=== PATIENT | female | born 1995 | race Caucasian/White ===

== ENCOUNTER 2018-01-05 13:15 | Emergency (ER) | payer MEDICAID ==
[~2018-01-05] VITALS: Ht 162.6 cm; Wt 70.3 kg
[2018-01-05 13:33] VITALS: BP_SYST 152
--- NOTE | 2018-01-05 13:43 | NUR ---
Armida Pike [employer] ENGINEER performing MSE at triage room.
[2018-01-05 14:13] LABS: BILIRUBIN,URINE NEGATIVE (NEGATIVE); CLARITY/URINE SL HAZY (CLEAR); COLOR,URINE YELLOW (YELLOW); GLUCOSE,URINE NEGATIVE (NEGATIVE); KETONES,URINE NEGATIVE (NEGATIVE); LEUKOCYTE ESTERASE ,URINE NEGATIVE (NEGATIVE); NITRITE, URINE NEGATIVE (NEGATIVE); PH,URINE 5.5 (5.0-8.0); PROTEIN URINE NEGATIVE (NEGATIVE); UROBILINOGEN,URINE 0.2 (0.2-1.0)
[2018-01-05 14:16] LABS: BLOOD, URINE TRACE (NEGATIVE)
[2018-01-05 14:33] LABS: BACTERIA,URINE MODERATE /HPF (None Seen); MUCUS,URINE 2+ /LPF (None Seen); RBC,URINE 0-3 /HPF (0-3)
[2018-01-05 14:36] LABS: BARBITURATE, URINE NEGATIVE (NEG <=200); METHAMPHETAMINES SCREEN,URINE NEGATIVE (NEG <=500); URINE AMPHETAMINE NEGATIVE (NEG <=500)
[2018-01-05 14:37] LABS: BENZODIAZEPINE, URINE NEGATIVE (NEG <=150); CANNABINOID, URINE NEGATIVE (NEG <=50); COCAINE, URINE NEGATIVE (NEG <=150); OPIATE, URINE NEGATIVE (NEG <=100); PHENCYCLIDINE SCREEN,URINE NEGATIVE (NEG <=25); UR TRICYCLIC ANTIDEPRESSANTS NEGATIVE (NEG <=300); URINE METHADONE NEGATIVE (NEG <=200); URINE OXYCODONE SCREEN NEGATIVE (NEG <=100); URINE PROPOXYPHENE SCREEN NEGATIVE (NEG <=300)
[2018-01-05] MEDS ORDERED: KETOROLAC TROMETHAMINE 60 MG/2 ML VIAL IM ONE (15:30)
--- NOTE | 2018-01-05 15:55 | NUR ---
Placed in bed 4 to gown.
--- NOTE | 2018-01-05 16:00 | NUR ---
Patient is ambulatory, a/o x4. Complaining of pain in the left and right mid back; SOB on exertion. Denies previous medical history. Will continue to monitor.
[2018-01-05 17:15] VITALS: BP_SYST 124
--- NOTE | 2018-01-05 17:15 | NUR ---
Patient given written and verbal discharge instructions and verbalizes understanding. ER MD discussed with patient the results and treatment provided. Patient in stable condition. ID arm band removed. Rx of tessalon pereles,albuterol, motrin, and cipro given. Patient educated on pain management and to follow up with PMD. Pain Scale 0/10. Opportunity for questions provided and answered. Medication side effect fact sheet provided.
== END 2018-01-05 17:11 | disposition home or self-care (01) ==
LOC: SED 13:15
DX: J06.9 Acute upper respiratory infection, unspecified (principal); N39.0 Urinary tract infection, site not specified; R03.0 Elevated blood-pressure reading, without diagnosis of hypertension; F17.210 Nicotine dependence, cigarettes, uncomplicated
CPT/HCPCS: 36415; 71045; 80307; 81000; 84484; 87086; 93005; 96374; 99285; J1885

== ENCOUNTER 2019-04-05 10:01 | Emergency (ER) | payer MEDICAID ==
[~2019-04-05] VITALS: Ht 165.1 cm; Wt 74.8 kg
[2019-04-05 10:05] VITALS: BP_SYST 159
[2019-04-05 10:50] VITALS: BP_SYST 126
== END 2019-04-05 10:50 | disposition home or self-care (01) ==
LOC: SED 10:01
DX: K08.89 Other specified disorders of teeth and supporting structures (principal); R03.0 Elevated blood-pressure reading, without diagnosis of hypertension; G43.909 Migraine, unspecified, not intractable, without status migrainosus
CPT/HCPCS: 81025; 99283

== ENCOUNTER 2020-03-27 16:30 | Emergency (ER) | payer MEDICAID ==
[~2020-03-27] VITALS: Ht 165.1 cm; Wt 72.6 kg
[2020-03-27 16:47] VITALS: BP_SYST 134
--- NOTE | 2020-03-27 18:15 | NUR ---
Patient to ER bed H2 to gown for evaluation. Side rails up.
--- NOTE | 2020-03-27 18:17 | NUR ---
Pt brought by self , A&Ox4, pt presents to ER with jaw pain, denies trauma, pt states pain increases during eating , skin pink and warm, respirations even and unlabored.
--- NOTE | 2020-03-27 18:20 | NUR ---
Dr Alvarado at bedside examining patient
[2020-03-27 18:30] VITALS: BP_SYST 132
--- NOTE | 2020-03-27 18:35 | NUR ---
Patient given written and verbal discharge instructions and verbalizes understanding. ER MD discussed with patient the results and treatment provided. Patient in stable condition. ID arm band removed. Rx of Naprosyn given. Patient educated on pain management and to follow up with PMD. Pain Scale 3/10 tolerable for patient . Opportunity for questions provided and answered. Medication side effect fact sheet provided.
== END 2020-03-27 18:30 | disposition home or self-care (01) ==
LOC: SED 16:30
DX: S03.42XA Sprain of jaw, left side, initial encounter (principal); G43.909 Migraine, unspecified, not intractable, without status migrainosus; F12.90 Cannabis use, unspecified, uncomplicated; Z90.49 Acquired absence of other specified parts of digestive tract; X58.XXXA Exposure to other specified factors, initial encounter; Y93.89 Activity, other specified; Y92.89 Other specified places as the place of occurrence of the external cause; Y99.8 Other external cause status
CPT/HCPCS: 99282

== ENCOUNTER 2023-06-13 15:45 | Emergency (ER) | payer MEDICAID ==
[~2023-06-13] VITALS: Ht 165.1 cm; Wt 77.1 kg
[2023-06-13 15:58] VITALS: BP_SYST 132; PULSE 75; RESP 18; TEMP 97.7; O2SAT 99
[2023-06-13 16:50] LABS: CLARITY/URINE SLIGHTLY HAZY (CLEAR); COLOR,URINE Y (YELLOW); GLUCOSE,URINE NEGATIVE (NEGATIVE); PROTEIN URINE NEGATIVE (NEGATIVE)
[2023-06-13 16:51] LABS: BILIRUBIN,URINE NEGATIVE (NEGATIVE); BLOOD, URINE TRACE (NEGATIVE); KETONES,URINE NEGATIVE (NEGATIVE); LEUKOCYTE ESTERASE ,URINE TRACE (NEGATIVE); NITRITE, URINE NEGATIVE (NEGATIVE); UROBILINOGEN,URINE 0.2 (0.2-1.0)
[2023-06-13 16:57] LABS: BACTERIA,URINE FEW /HPF (None Seen)
[2023-06-13 20:16] VITALS: BP_SYST 132; PULSE 75; RESP 18; TEMP 97.7; O2SAT 99
== END 2023-06-13 20:15 | disposition left against medical advice (07) ==
LOC: SED 15:45
DX: O26.891 Other specified pregnancy related conditions, first trimester (principal); Z3A.09 9 weeks gestation of pregnancy; Z53.21 Procedure and treatment not carried out due to patient leaving prior to being seen by health care provider
CPT/HCPCS: 81000; 87086; 99281